=== PATIENT | male | born 2005 | race Hispanic/Latino ===

== ENCOUNTER 2025-03-26 21:49 | Emergency (ER) | payer BC ==
[~2025-03-26] VITALS: Ht 175.3 cm; Wt 99.8 kg
[2025-03-26] MEDS: ACETAMINOPHEN 325 MG TAB PO ONE (22:45)
[2025-03-26] MEDS ORDERED: ACETAMINOPHEN 325 MG TAB ONE (22:46)
[2025-03-26 23:05] LABS: CORONAVIRUS COVID-19 AG NEGATIVE (NEGATIVE); STREPTOCOCCUS GRP A ANTIGEN NEGATIVE (NEGATIVE)
[2025-03-27 00:24] VITALS: BP 148/79; PULSE 77; RESP 18; TEMP 98.9
[2025-03-27 00:26] VITALS: PULSE 77; RESP 19; TEMP 98.9; O2SAT 100
== END 2025-03-27 00:27 | disposition home or self-care (01) ==
LOC: ER 03-27 00:03
DX: J06.9 Acute upper respiratory infection, unspecified (principal); B34.9 Viral infection, unspecified; R05.9 Cough, unspecified; R50.9 Fever, unspecified; Z11.52 Encounter for screening for COVID-19
CPT/HCPCS: 71045; 83518; 87070; 99282